=== PATIENT | female | born 1930 | race Caucasian/White ===

== ENCOUNTER → 2016-10-28 13:08 | Outpatient (CLI) | payer MEDICARE, BC ==
[2013-02-20 09:50] VITALS: BMI 27.2
[~2016-10-28 13:08] MED LIST: AMBIEN5 MG PO; ANTIVERT12.5 MG PO; ASPIRIN 81 MG E81 MG PO; BYSTOLIC10 MG PO; CARAFATE1 G PO; CHRONULAC30 ML PO; ENULOSE10 G/15 ML PO; EXELON1 PATCH .1 TD; FLEXERIL5 MG PO; INSTA-GLUCOSE31 GM PO; LASIX20 MG PO; MEGACE40 MG PO; MELATONIN 3 MG1 TAB PO; MIRALAX17 GM PO; MUCINEX600 MG PO; NEPHRO-VITE RX1 TAB PO; NORCO 5/325 TAB1 TA1 PO; NORVASC10 MG PO; PHENERGAN25 M1 PO; PHENERGAN25 MG RC; PLAQUENIL200 MG PO; PLAVIX75 MG PO; PRILOSEC20 MG PO; PROTONIX40 MG PO; ROBITUSSIN100 MG/5 M PO; SODIUM BICARBO650 MG PO; SYNTHROID112 MCG PO; TUMS500 MG PO; TYLENOL 325 MG325 MG PO; WELLBUTRIN SR100 MG PO; XANAX0.25 MG PO; ZOFRAN4 MG PO
== END | disposition home or self-care (01) ==
LOC: D.RAD 10-14 13:00
DX: R13.12 Dysphagia, oropharyngeal phase (principal)

== ENCOUNTER 2017-09-01 19:01 | Inpatient (IN) | payer MEDICARE, BC ==
[~2017-09-01] VITALS: Ht 161.3 cm; Wt 53.3 kg
[2017-09-01 19:47] LABS: BASOPHILS 0.1 % (0-2); EOSINOPHILS 1.3 % (0-7); HEMATOCRIT 22.3 % (36.0-48.0); IMMATURE GRANULOCYTES 0.1 % (0-5); LYMPHOCYTES 21.4 % (15-50); MCH 32.5 pg (26.0-34.0); MCHC 33.6 g/dL (31.0-37.0); MCV 96.5 fL (80.0-100.0); MEAN PLATELET VOLUME 11.1 fL (7.4-10.4); MONOCYTES 8.8 % (2-11); NEUTROPHILS 68.3 % (40-80); RBC 2.31 10x6/uL (4.00-5.40); RDW 13.8 % (11.5-14.5); WBC 7.5 10x3/uL (4.8-10.8)
[2017-09-01 19:50] LABS: HEMOGLOBIN 7.5 g/dL (12-16); PLATELET COUNT 123 10x3/uL (130-400)
[2017-09-01 19:55] LABS: ALBUMIN 2.7 g/dL (3.4-5.0); ANION GAP 13.3 mmol/L (8-16); BILIRUBIN - TOTAL 0.62 mg/dL (0.2-1.3); CALCIUM 8.5 mg/dL (8.5-10.1); CARBON DIOXIDE 26.8 mmol/L (21.0-32.0); CREATININE - SERUM 3.6 mg/dL (0.6-1.3); POTASSIUM - SERUM 3.1 mmol/L (3.5-5.1); PROTEIN - SERUM 5.5 g/dL (6.4-8.2)
[2017-09-01 20:06] LABS: APPEARANCE HAZY (CLEAR); BILIRUBIN NEGATIVE (NEGATIVE); COLOR YELLOW (YELLOW); GLUCOSE NEGATIVE (NEGATIVE); KETONE NEGATIVE (NEGATIVE); NITRITE NEGATIVE (NEGATIVE); PROTEIN 2+ mg/dL (NEGATIVE); UROBILINOGEN NORMAL (NORMAL)
[2017-09-01 20:08] LABS: EPITHELIAL CELLS 0-5 /hpf (0-5); WHITE CELLS - URINE >50 /hpf (0-5)
[2017-09-01 20:09] LABS: BACTERIA MANY /hpf (NONE SEEN)
[2017-09-02] VITALS: BP 169/58
[2017-09-02 05:50] VITALS: BP 169/58; BMI 21.5
[2017-09-02 08:23] LABS: BASOPHILS 0.3 % (0-2); EOSINOPHILS 1.8 % (0-7); IMMATURE GRANULOCYTES 0.3 % (0-5); LYMPHOCYTES 22.9 % (15-50); MCH 31.5 pg (26.0-34.0); MCHC 33.8 g/dL (31.0-37.0); MEAN PLATELET VOLUME 10.7 fL (7.4-10.4); MONOCYTES 10.3 % (2-11); NEUTROPHILS 64.4 % (40-80); PLATELET COUNT 108 10x3/uL (130-400); RDW 16.8 % (11.5-14.5); WBC 7.6 10x3/uL (4.8-10.8)
[2017-09-02 08:27] LABS: HEMATOCRIT 27.5 % (36.0-48.0); HEMOGLOBIN 9.3 g/dL (12-16); MCV 93.2 fL (80.0-100.0); RBC 2.95 10x6/uL (4.00-5.40)
[2017-09-02 08:39] LABS: CALCIUM 8.6 mg/dL (8.5-10.1); CARBON DIOXIDE 26.3 mmol/L (21.0-32.0); CREATININE - SERUM 3.9 mg/dL (0.6-1.3); POTASSIUM - SERUM 3.3 mmol/L (3.5-5.1)
[2017-09-02 09:35] VITALS: BP 141/96
[2017-09-02 12:37] VITALS: BMI 21.4
[2017-09-02 13:40] VITALS: Ht 161.3 cm; Wt 53.3 kg
[2017-09-02 16:57] VITALS: BP 151/84
[2017-09-02 21:06] VITALS: BP 129/44
[2017-09-03 04:32] VITALS: BP 94/44
[2017-09-03 07:53] VITALS: BP 189/61
[2017-09-03 11:11] VITALS: BP 150/46
[2017-09-03 15:19] VITALS: BP 144/53
[2017-09-03 20:30] VITALS: BP 161/50
[2017-09-04 00:30] VITALS: BP 147/87
[2017-09-04 04:30] VITALS: BP 151/48
[2017-09-04 08:56] LABS: BASOPHILS 0.1 % (0-2); EOSINOPHILS 2.9 % (0-7); HEMATOCRIT 27.4 % (36.0-48.0); HEMOGLOBIN 9.3 g/dL (12-16); IMMATURE GRANULOCYTES 0.3 % (0-5); LYMPHOCYTES 22.7 % (15-50); MCH 31.1 pg (26.0-34.0); MCHC 33.9 g/dL (31.0-37.0); MCV 91.6 fL (80.0-100.0); MONOCYTES 9.3 % (2-11); NEUTROPHILS 64.7 % (40-80); RBC 2.99 10x6/uL (4.00-5.40); RDW 16.4 % (11.5-14.5); WBC 6.8 10x3/uL (4.8-10.8)
[2017-09-04 09:02] LABS: PLATELET COUNT 136 10x3/uL (130-400)
[2017-09-04 09:03] LABS: ANION GAP 13.7 mmol/L (8-16); CALCIUM 8.2 mg/dL (8.5-10.1); CARBON DIOXIDE 25.5 mmol/L (21.0-32.0); CREATININE - SERUM 4.8 mg/dL (0.6-1.3); POTASSIUM - SERUM 3.2 mmol/L (3.5-5.1)
[2017-09-04 09:27] VITALS: BP 113/32
[2017-09-04 12:09] VITALS: BP 133/45
[2017-09-04 15:05] VITALS: BP 156/44
[2017-09-04 20:00] VITALS: BP 133/50
[2017-09-05] VITALS: BP 147/58
[2017-09-05 04:00] VITALS: BP 142/43
[2017-09-05 05:26] LABS: ANION GAP 13.8 mmol/L (8-16); CALCIUM 8.4 mg/dL (8.5-10.1); CARBON DIOXIDE 23.7 mmol/L (21.0-32.0); CREATININE - SERUM 5.6 mg/dL (0.6-1.3); POTASSIUM - SERUM 3.5 mmol/L (3.5-5.1)
[2017-09-05 05:28] LABS: BASOPHILS 0.5 % (0-2); HEMATOCRIT 27.7 % (36.0-48.0); HEMOGLOBIN 9.5 g/dL (12-16); IMMATURE GRANULOCYTES 0.6 % (0-5); LYMPHOCYTES 29.6 % (15-50); MCH 31.5 pg (26.0-34.0); MCHC 34.3 g/dL (31.0-37.0); MCV 91.7 fL (80.0-100.0); MEAN PLATELET VOLUME 11.6 fL (7.4-10.4); MONOCYTES 9.6 % (2-11); NEUTROPHILS 56.7 % (40-80); PLATELET COUNT 149 10x3/uL (130-400); RBC 3.02 10x6/uL (4.00-5.40); RDW 16.3 % (11.5-14.5); WBC 6.4 10x3/uL (4.8-10.8)
[2017-09-05 08:25] VITALS: BP 138/72
[2017-09-05 16:23] VITALS: BP 136/45
[2017-09-05 19:00] VITALS: BP 129/46
[2017-09-06] VITALS: BP 119/43
[2017-09-06 04:00] VITALS: BP 140/92
[2017-09-06 08:07] VITALS: BP 151/55
[2017-09-06 09:01] LABS: BASOPHILS 0.1 % (0-2); EOSINOPHILS 0.7 % (0-7); HEMATOCRIT 32.5 % (36.0-48.0); HEMOGLOBIN 11.1 g/dL (12-16); IMMATURE GRANULOCYTES 0.1 % (0-5); LYMPHOCYTES 16.7 % (15-50); MCH 31.6 pg (26.0-34.0); MCHC 34.2 g/dL (31.0-37.0); MCV 92.6 fL (80.0-100.0); MEAN PLATELET VOLUME 11.2 fL (7.4-10.4); MONOCYTES 11.9 % (2-11); NEUTROPHILS 70.5 % (40-80); PLATELET COUNT 167 10x3/uL (130-400); RBC 3.51 10x6/uL (4.00-5.40); RDW 15.8 % (11.5-14.5); WBC 7.6 10x3/uL (4.8-10.8)
[2017-09-06 09:16] LABS: ANION GAP 13.5 mmol/L (8-16); CALCIUM 8.5 mg/dL (8.5-10.1); CARBON DIOXIDE 27.9 mmol/L (21.0-32.0); PHOSPHOROUS 3.1 mg/dL (2.5-4.9); POTASSIUM - SERUM 3.4 mmol/L (3.5-5.1)
[2017-09-06 09:29] LABS: CREATININE - SERUM 3.9 mg/dL (0.6-1.3)
[2017-09-06 10:46] VITALS: BP 148/61
[2017-09-06 15:33] VITALS: BP 142/65
== END 2017-09-06 16:51 | DRG 811 ==
LOC: D.ER 19:01 → D.M2 22:31 → D.EDHOLD 22:31 → D.M2 22:42 → D.SDCHOLD 09-05 13:02 → D.M2 09-06 16:51
PROVIDERS: Emergency Medicine; Internal Medicine Nephrology
PROC: 5A1D70Z Performance of Urinary Filtration, Intermittent, Less than 6 Hours Per Day (ICD-10-PCS; principal; 2017-09-02)
DX: D64.9 Anemia, unspecified (principal); N18.6 End stage renal disease; I13.2 Hypertensive heart and chronic kidney disease with heart failure and with stage 5 chronic kidney disease, or end stage renal disease; R62.7 Adult failure to thrive; F03.90 Unspecified dementia, unspecified severity, without behavioral disturbance, psychotic disturbance, mood disturbance, and anxiety; E11.22 Type 2 diabetes mellitus with diabetic chronic kidney disease; I50.9 Heart failure, unspecified; Z99.2 Dependence on renal dialysis; I25.10 Atherosclerotic heart disease of native coronary artery without angina pectoris; E03.9 Hypothyroidism, unspecified; K59.00 Constipation, unspecified; Z95.1 Presence of aortocoronary bypass graft

== ENCOUNTER 2017-09-23 16:36 | Inpatient (IN) | payer MEDICARE, BC ==
[~2017-09-23] VITALS: Ht 161.3 cm; Wt 61.4 kg
[2017-09-23 17:13] VITALS: BP 152/45; BMI 23.6
[2017-09-23] MEDS ORDERED: CHRONULAC30 ML PO (18:33)
[2017-09-23] MEDS ORDERED: MARINOL5 MG PO (18:34)
[2017-09-23] MEDS ORDERED: SYNTHROID112 MCG PO (18:34)
[2017-09-23] MEDS ORDERED: NORVASC5 MG PO (18:34)
[2017-09-23] MEDS ORDERED: NOVOLIN R100 U/ML SQ (18:37)
[2017-09-23] MEDS ORDERED: PLAQUENIL200 MG PO (18:38)
[2017-09-23] MEDS ORDERED: CARAFATE1 G PO (18:39)
[2017-09-23] MEDS ORDERED: CYCLOBENZAPRINE5 MG PO (18:39)
[2017-09-23] MEDS ORDERED: ARTIFICIAL TEAR15 ML EACH EYE (18:40)
[2017-09-23] MEDS ORDERED: ALOPHEN PILLS5 MG PO (18:41)
[2017-09-23] MEDS ORDERED: DULCOLAX10 MG/SUPP RC (18:41)
[2017-09-23] MEDS ORDERED: NITROSTAT0.4 MG SL (18:44)
[2017-09-23] MEDS ORDERED: GLUCAGEN1 MG/VIAL IM (18:44)
[2017-09-23] MEDS ORDERED: NUCYNTA50 MG PO (18:45)
[2017-09-23] MEDS ORDERED: TESSALON PERLE100 MG PO (18:46)
[2017-09-23] MEDS ORDERED: GAS-X80 MG PO (18:46)
[2017-09-23] MEDS ORDERED: VALIUM5 MG PO (18:47)
[2017-09-23] MEDS ORDERED: ACETAMINOPHEN325 MG PO (18:47)
[2017-09-23] MEDS ORDERED: ZOFRAN4 MG PO (18:48)
[2017-09-23 19:57] VITALS: BP 172/85
[2017-09-23 21:17] LABS: BASOPHILS 0.3 % (0-2); EOSINOPHILS 1.4 % (0-7); HEMATOCRIT 29.9 % (36.0-48.0); HEMOGLOBIN 9.8 g/dL (12-16); IMMATURE GRANULOCYTES 0.2 % (0-5); LYMPHOCYTES 22.9 % (15-50); MCH 31.6 pg (26.0-34.0); MCHC 32.8 g/dL (31.0-37.0); MCV 96.5 fL (80.0-100.0); MEAN PLATELET VOLUME 10.5 fL (7.4-10.4); MONOCYTES 13.3 % (2-11); NEUTROPHILS 61.9 % (40-80); PLATELET COUNT 153 10x3/uL (130-400); RDW 14.5 % (11.5-14.5); WBC 6.3 10x3/uL (4.8-10.8)
[2017-09-23 21:22] LABS: INR 1.23 (0.85-1.17)
[2017-09-23 21:38] LABS: ALBUMIN 2.3 g/dL (3.4-5.0); BILIRUBIN - TOTAL 0.73 mg/dL (0.2-1.3); CALCIUM 8.4 mg/dL (8.5-10.1); CARBON DIOXIDE 26.3 mmol/L (21.0-32.0); CREATININE - SERUM 5.1 mg/dL (0.6-1.3); MAGNESIUM - SERUM 2.1 mg/dL (1.8-2.4); PHOSPHOROUS 2.8 mg/dL (2.5-4.9); POTASSIUM - SERUM 4.3 mmol/L (3.5-5.1); PROTEIN - SERUM 5.2 g/dL (6.4-8.2)
[2017-09-24] VITALS: BP 197/59
[2017-09-24 04:00] VITALS: BP 200/68
[2017-09-24 09:10] VITALS: Ht 161.3 cm; Wt 61.4 kg
[2017-09-24 09:30] VITALS: BP 141/74
[2017-09-24 20:00] VITALS: BP 165/54
[2017-09-25 04:00] VITALS: BP 196/67
[2017-09-25 09:27] VITALS: BP 183/69
== END 2017-09-25 11:35 | DRG 533 ==
LOC: D.MS 16:36
PROVIDERS: Internal Medicine Nephrology
DX: S72.402A Unspecified fracture of lower end of left femur, initial encounter for closed fracture (principal); N18.6 End stage renal disease; I12.0 Hypertensive chronic kidney disease with stage 5 chronic kidney disease or end stage renal disease; W06.XXXA Fall from bed, initial encounter; Y92.122 Bedroom in nursing home as the place of occurrence of the external cause; E11.65 Type 2 diabetes mellitus with hyperglycemia; Z66 Do not resuscitate; F03.90 Unspecified dementia, unspecified severity, without behavioral disturbance, psychotic disturbance, mood disturbance, and anxiety; R62.7 Adult failure to thrive; E11.22 Type 2 diabetes mellitus with diabetic chronic kidney disease; Z99.2 Dependence on renal dialysis; E11.40 Type 2 diabetes mellitus with diabetic neuropathy, unspecified; R41.82 Altered mental status, unspecified; T48.205A Adverse effect of unspecified drugs acting on muscles, initial encounter; T40.605A Adverse effect of unspecified narcotics, initial encounter; Y92.239 Unspecified place in hospital as the place of occurrence of the external cause